=== PATIENT | female | born 1980 | race Caucasian/White ===

== ENCOUNTER 2016-10-16 07:09 | Day surgery (SDC) | payer OTHER ==
[2016-10-15 11:14] LABS: HCG,QUAL RESULT NEGATIVE (NEGATIVE)
[~2016-10-16] VITALS: Ht 170.2 cm; Wt 75.3 kg
[2016-10-16] MEDS ORDERED: LR 1,000 ML IV SCH (10:27)
[2016-10-16] MEDS ORDERED: METOCLOPRAMIDE HCL 10 MG/2 ML VIAL IVP PRN (10:30)
[2016-10-16] MEDS ORDERED: MORPHINE 4 MG/ML INJ. SYRINGE IVP PRN ×3 (10:30)
[2016-10-16 12:18] VITALS: BP_SYST 120
[2016-10-16] MEDS ORDERED: MORPHINE 2 MG/ML INJ. SYRINGE IVP ONE (12:45)
[2016-10-16] MEDS ORDERED: MORPHINE SULFATE 10 MG/ML VIAL ONE (12:55)
[2016-10-16] MEDS ORDERED: OXYMETAZOLINE HCL 0.05% NASAL SPRAY NS ONE (14:00)
[2016-10-16] MEDS ORDERED: SEVOFLURANE 15 MIN GAS INH ONE (14:00)
[2016-10-16] MEDS ORDERED: MIDAZOLAM HCL 5 MG/5 ML VIAL ONE (14:00)
[2016-10-16] MEDS ORDERED: PROPOFOL 200MG/ 20ML VIAL (DIPRIVAN) IV ONE (14:00)
[2016-10-16] MEDS ORDERED: fentaNYL CITRATE 250 MCG/5 ML AMP ONE (14:00)
[2016-10-16] MEDS ORDERED: LR 1,000 ML IV.SOLN IV ONE (14:00)
[2016-10-16] MEDS ORDERED: NS 100 ML BAG IV ONE (14:00)
[2016-10-16] MEDS ORDERED: DEXAMETHASONE SOD PHOSPHATE 4 MG/ML VIAL ONE (14:00)
[2016-10-16] MEDS ORDERED: ONDANSETRON HCL 4 MG/2 ML VIAL ONE (14:00)
[2016-10-16] MEDS ORDERED: EPINEPHrine 1 MG/ML AMP ONE (14:00)
[2016-10-16] MEDS ORDERED: BACITRACIN ZINC 15 GM TOPICAL OINTMENT TP ONE (14:00)
[2016-10-16] MEDS ORDERED: LIDOCAINE/EPI 1% 1:100000 20 ML VIAL INJ ONE (14:00)
[2016-10-16] MEDS ORDERED: NS IRRIG SOLN 1000 ML IR ONE (14:00)
[2016-10-16] MEDS ORDERED: ROCURONIUM BROMIDE 10 MG/ML (ZEMURON) ONE (14:00)
== END 2016-10-16 16:10 | disposition home or self-care (01) ==
LOC: SDS 07:09 → SMU 07:14 → SDS 16:10
PROVIDERS: ATTEND Otolaryngology
DX: J32.9 Chronic sinusitis, unspecified (principal); J34.89 Other specified disorders of nose and nasal sinuses; J34.2 Deviated nasal septum
CPT/HCPCS: 30140; 30520; 31240; 31255; 31267; 31296; 84703; 88305; 88311; C1726; J0171; J1100; J2250; J2270; J2405; J2704; J3010; J7120